=== PATIENT | female | born 1940 | race Caucasian/White ===

== ENCOUNTER 2016-11-11 08:18 | Outpatient (CLI) | payer OTHER ==
[2014-05-09 20:55] VITALS: BP 150/88
[2016-11-11 09:52] LABS: eGFR (African) > 60; eGFR (Non-African) > 60
== END 2016-11-11 08:20 ==
LOC: LAB 08:18
PROVIDERS: ATTEND Family Medicine
DX: E03.9 Hypothyroidism, unspecified (principal); R73.9 Hyperglycemia, unspecified
CPT/HCPCS: 36415; 80053; 83036; 84443

== ENCOUNTER 2017-11-23 09:34 | Outpatient (CLI) | payer OTHER ==
[2014-05-09 20:55] VITALS: BP 150/88
[2017-11-23 10:24] LABS: eGFR (African) > 60; eGFR (Non-African) > 60
== END 2017-11-23 09:35 ==
LOC: LAB 09:34
PROVIDERS: ATTEND Family Medicine
DX: R73.9 Hyperglycemia, unspecified (principal); E03.9 Hypothyroidism, unspecified
CPT/HCPCS: 36415; 80053; 80061; 83036; 84443

== ENCOUNTER 2018-07-20 13:19 | Outpatient (CLI) | payer OTHER ==
[2014-05-09 20:55] VITALS: BP 150/88
== END 2018-07-20 13:30 ==
LOC: RT 13:19
PROVIDERS: ATTEND Nurse Practitioner Family
DX: I49.9 Cardiac arrhythmia, unspecified (principal)

== ENCOUNTER 2018-12-14 09:11 | Outpatient (CLI) | payer OTHER ==
[2014-05-09 20:55] VITALS: BP 150/88
[2018-12-14 09:40] LABS: A1C 5.7 % (<5.7)
[2018-12-14 10:26] LABS: HDL 57 mg/dL (>40); eGFR (Non-African) > 60
== END 2018-12-14 09:13 ==
LOC: LAB 09:11
PROVIDERS: ATTEND Family Medicine
DX: I10 Essential (primary) hypertension (principal)
CPT/HCPCS: 36415; 80053; 80061; 83036; 84443